=== PATIENT | female | born 1945 | race Caucasian/White ===

== ENCOUNTER 2018-10-09 10:18 | Inpatient (IN) ==
[2018-10-09 10:59] LABS: Basophils # 0.1 10*3/uL (0.0-0.2); Basophils % 0.7 % (0.0-0.8); Eosinophils # 0.1 10*3/uL (0.0-0.87); Hematocrit 42.5 VOL% (35.7-47.0); Hemoglobin 13.9 GM/DL (12.0-16.0); Immature Granulocytes % 0.3 %; Immature Granulocytes Absolute 0.02 #; Lymphocytes # 2.5 10*3/uL (1.4-4.0); Lymphocytes % 36.3 % (21.3-54.2); Mean Corpuscular HGB Conc 32.7 GM/DL (32-36); Mean Corpuscular Volume 91.4 FL (87-102); Monocytes % 7.3 % (1.7-12.7); Neutrophils % 54.4 % (38.7-73.9); Platelet Count 241 T/CUMM (130-400); Red Blood Count 4.65 MC/CUMM (3.8-5.5); Red Cell Distribution Width 13.3 % (9.3-17.3)
[2018-10-09 11:01] LABS: Apearance,Urine Slightly Hazy (Clear); Bacteria,Urine Occasional /HPF (Few); Bilirubin,Urine Negative (Negative); Blood, Urine Negative (Negative); Glucose,Urine (UA) Negative (Negative); Hyaline Casts,Urine 25 /LPF (0-3); Ketones,Urine Negative (Negative); Mucus,Urine Occasional /LPF (Occasional); Nitrite,Urine Positive (Negative); Protein,Urine Negative; RBC,Urine 2 /HPF (0-4); Squamous Epithelial Cell,Urine Occasional /HPF (0-10); Urine Color Yellow (Yellow); Urine Urobilinogen < 2.0 EU/DL (0.2-1.0); WBC,Urine 5 /HPF (0-6)
[2018-10-09 11:06] LABS: INR 0.9; PT Patient Result 10.3 SECS; Partial Thromboplastin Time 25.7 SECS (0-40)
[2018-10-09 11:22] LABS: Barbiturates Screen,Urine Negative (Negative); Benzodiazepines Screen,Urine Negative (Negative); Cannabinoid Screen,Urine Negative (Negative); Opiate Screen,Urine Negative (Negative); Phencyclidine Screen,Urine Negative (Negative)
[2018-10-09 11:23] LABS: Albumin 3.8 G/DL (3.4-5.0); Bilirubin,Total 0.7 MG/DL (0.2-1.0); Calcium 9.5 MG/DL (8.5-10.1); Osmolality,Calculated 280.7 MOS/KG (273-304)
[2018-10-09] MEDS ORDERED: CETIRIZINE 10 MG TABLET ONE (11:35)
[2018-10-09] MEDS ORDERED: methylPREDNISolone SOD SUC 125 MG/2 ML VIAL ONE (11:35)
[2018-10-09] MEDS ORDERED: CETIRIZINE 10 MG TABLET PO STA (11:46)
[2018-10-09] MEDS ORDERED: methylPREDNISolone SOD SUC 125 MG/2 ML VIAL IV STA ×2 (11:46→13:10)
[2018-10-09] MEDS ORDERED: ENOXAPARIN 80 MG/0.8 ML SYRINGE SUBCUT STA (12:43)
[2018-10-09] MEDS ORDERED: cefTRIAXone 1,000 MG in SODIUM CHLORIDE 0.9% 100 ML IV STA (12:45)
[2018-10-09] MEDS ORDERED: cefTRIAXone 1,000 MG in SYRINGE 1 EACH IV STA (12:46)
[2018-10-09] MEDS ORDERED: ONDANSETRON 4 MG/2 ML VIAL IV PRN (12:50)
[2018-10-09] MEDS ORDERED: ACETAMINOPHEN 325 MG TABLET PO PRN (12:50)
[2018-10-09] MEDS ORDERED: FAMOTIDINE 20 MG/2 ML VIAL IV STA (13:10)
[2018-10-09] MEDS ORDERED: hydrOXYzine HCL 25 MG/1 ML VIAL IM ONE ×2 (13:10→14:30)
[2018-10-09] MEDS: SODIUM CHLORIDE 0.9% 1,000 ML IV SCH ×2 (13:51→17:35)
[2018-10-09] MEDS: cefTRIAXone 1,000 MG in SYRINGE 1 EACH IV SCH (14:08)
[2018-10-09] MEDS: PANTOPRAZOLE 40 MG TABLET PO SCH (14:15)
[2018-10-09] MEDS: ENOXAPARIN 80 MG/0.8 ML SYRINGE SUBCUT SCH (14:15)
[2018-10-09] MEDS ORDERED: SODIUM CHLORIDE 0.9% 1,000 ML IV ONE (14:31)
[2018-10-09] MEDS ORDERED: clonazePAM 0.5 MG TABLET PO PRN (16:51)
[2018-10-09] MEDS ORDERED: traZODone 50 MG TABLET PO PRN (16:53)
[2018-10-10] MEDS: ENOXAPARIN 80 MG/0.8 ML SYRINGE SUBCUT SCH (01:45)
[2018-10-10] MEDS: SODIUM CHLORIDE 0.9% 1,000 ML IV SCH ×4 (01:46→17:46)
[2018-10-10 04:39] LABS: Hematocrit 37.7 VOL% (35.7-47.0); Hemoglobin 12.2 GM/DL (12.0-16.0); Immature Granulocytes % 0.8 %; Immature Granulocytes Absolute 0.07 #; Lymphocytes # 1.5 10*3/uL (1.4-4.0); Lymphocytes % 16.8 % (21.3-54.2); Mean Corpuscular HGB Conc 32.4 GM/DL (32-36); Mean Corpuscular Volume 92.2 FL (87-102); Mean Platelet Volume 11.2 FL (9.6-12.0); Monocytes % 1.4 % (1.7-12.7); Platelet Count 203 T/CUMM (130-400); Red Blood Count 4.09 MC/CUMM (3.8-5.5); Red Cell Distribution Width 13.5 % (9.3-17.3); White Blood Count 8.7 T/CUMM (4-12)
[2018-10-10 05:19] LABS: Albumin 3.2 G/DL (3.4-5.0); Bilirubin,Total 0.4 MG/DL (0.2-1.0); Calcium 8.7 MG/DL (8.5-10.1); Osmolality,Calculated 287.3 MOS/KG (273-304); Risk Ratio 4.83; Thyroid Stimulating Hormone 1.13 uIU/ml (0.358-3.74); Total Protein 6.3 G/DL (6.4-8.3); VLDL CHOLESTEROL 35.2 MG/DL
[2018-10-10] MEDS: PANTOPRAZOLE 40 MG TABLET PO SCH (09:13)
[2018-10-10] MEDS: cefTRIAXone 1,000 MG in SYRINGE 1 EACH IV SCH (13:02)
[2018-10-10] MEDS ORDERED: APIXABAN 5 MG TABLET PO SCH (21:00)
[2018-10-11] MEDS: SODIUM CHLORIDE 0.9% 1,000 ML IV SCH ×2 (02:41→10:29)
[2018-10-11 05:51] LABS: Calcium 7.8 MG/DL (8.5-10.1); Osmolality,Calculated 293.6 MOS/KG (273-304)
[2018-10-11 06:01] LABS: Basophils % 0.4 % (0.0-0.8); Eosinophils % 0.3 % (0.00-10.9); Hematocrit 35.5 VOL% (35.7-47.0); Hemoglobin 10.9 GM/DL (12.0-16.0); Immature Granulocytes % 0.3 %; Immature Granulocytes Absolute 0.02 #; Lymphocytes # 3.3 10*3/uL (1.4-4.0); Mean Corpuscular HGB Conc 30.7 GM/DL (32-36); Mean Corpuscular Volume 95.7 FL (87-102); Mean Platelet Volume 11.4 FL (9.6-12.0); Monocytes % 6.5 % (1.7-12.7); Neutrophils % 50.5 % (38.7-73.9); Platelet Count 195 T/CUMM (130-400); Red Blood Count 3.71 MC/CUMM (3.8-5.5)
[2018-10-11] MEDS ORDERED: POLYETHYLENE GLYCOL POWDER 17 GM PACK PO SCH (09:00)
[2018-10-11] MEDS ORDERED: LEVOTHYROXINE 137 MCG TABLET PO SCH (09:00)
[2018-10-11] MEDS ORDERED: MELOXICAM 7.5 MG TABLET PO SCH (09:00)
[2018-10-11] MEDS ORDERED: ASPIRIN CHEW 81 MG TABLET PO SCH (09:00)
[2018-10-11] MEDS ORDERED: ENALAPRIL 10 MG TABLET PO SCH (09:00)
[2018-10-11] MEDS ORDERED: APIXABAN 5 MG TABLET PO SCH (09:00)
[2018-10-11] MEDS ORDERED: FUROSEMIDE 20 MG TABLET PO SCH (09:00)
[2018-10-11] MEDS: PANTOPRAZOLE 40 MG TABLET PO SCH (09:22)
[2018-10-11 12:10] VITALS: BP 153/69
[2018-10-11] MEDS: cefTRIAXone 1,000 MG in SYRINGE 1 EACH IV SCH (13:07)
== END 2018-10-11 13:26 | disposition home or self-care (01) | DRG 176 ==
LOC: N.ED 10:18 → N.EDINP 10:18 → N.5E 15:26
PROVIDERS: ADMIT Internal Medicine; ATTEND Internal Medicine

== ENCOUNTER 2020-06-09 11:49 | Observation (INO) ==
[2020-06-09] MEDS ORDERED: NITROGLYCERIN 2% OINT 1 INCH/GM PACK TOP STA (12:15)
[2020-06-09] MEDS ORDERED: ONDANSETRON 4 MG/2 ML VIAL IV STA ×2 (12:15→13:47)
[2020-06-09] MEDS ORDERED: ENOXAPARIN 100 MG/ML SYRINGE SUBCUT STA (12:15)
[2020-06-09] MEDS ORDERED: ALUM/MAG/SIMETH/LIDO VISC 1:1 30 ML BOTTLE PO STA (12:15)
[2020-06-09] MEDS ORDERED: fentaNYL 100 MCG/2 ML VIAL IV STA ×2 (12:16→13:47)
[2020-06-09 12:37] LABS: Basophils # 0.1 10*3/uL (0.0-0.2); Basophils % 0.8 % (0.0-0.8); Eosinophils # 0.1 10*3/uL (0.0-0.87); Eosinophils % 1.1 % (0.00-10.9); Hematocrit 44.9 VOL% (35.7-47.0); Hemoglobin 14.4 GM/DL (12.0-16.0); Immature Granulocytes % 0.3 %; Immature Granulocytes Absolute 0.02 #; Lymphocytes # 2.9 10*3/uL (1.4-4.0); Lymphocytes % 39.9 % (21.3-54.2); Mean Corpuscular HGB Conc 32.1 GM/DL (32-36); Mean Corpuscular Volume 95.7 FL (87-102); Monocytes % 6.1 % (1.7-12.7); Neutrophils % 51.8 % (38.7-73.9); PT Patient Result 10.8 SECS (9.8-11.9); Partial Thromboplastin Time 27.9 SECS (23.9-33.8); Platelet Count 237 T/CUMM (130-400); Red Blood Count 4.69 MC/CUMM (3.8-5.5); Red Cell Distribution Width 13.4 % (9.3-17.3); White Blood Count 7.4 T/CUMM (4-12)
[2020-06-09 13:08] LABS: Bilirubin,Total 0.6 MG/DL (0.2-1.0); Calcium 9.3 MG/DL (8.5-10.1); Osmolality,Calculated 268.2 MOS/KG (273-304); Potassium 4.2 MMOL/L (3.5-5.1); Total Protein 7.6 G/DL (6.4-8.3)
[2020-06-09] MEDS ORDERED: GLUCAGON 1 MG VIAL IM PRN (14:36)
[2020-06-09] MEDS ORDERED: DEXTROSE 50% 25 GM/50 ML VIAL IV PRN (14:36)
[2020-06-09] MEDS ORDERED: ONDANSETRON 4 MG/2 ML VIAL IV PRN (14:36)
[2020-06-09] MEDS ORDERED: hydrALAZINE 20 MG/1 ML VIAL IV PRN (14:36)
[2020-06-09] MEDS ORDERED: ACETAMINOPHEN 325 MG TABLET PO PRN (14:36)
[2020-06-09] MEDS ORDERED: DOCUSATE SODIUM 100 MG CAPSULE PO PRN (14:36)
[2020-06-09] MEDS ORDERED: fentaNYL 100 MCG/2 ML VIAL IV PRN (14:42)
[2020-06-09] MEDS ORDERED: ENOXAPARIN 40 MG/0.4 ML SYRINGE SUBCUT SCH (15:00)
[2020-06-09] MEDS ORDERED: SERTRALINE 25 MG TABLET PO ONE (16:30)
[2020-06-09] MEDS ORDERED: clonazePAM 0.5 MG TABLET PO ONE (16:30)
[2020-06-09] MEDS: INSULIN LISPRO 100 UNIT/ML SUBCUT SCH ×2 (19:13→21:57)
[2020-06-09] MEDS ORDERED: SERTRALINE 25 MG TABLET PO SCH (21:00)
[2020-06-09] MEDS: clonazePAM 0.5 MG TABLET PO SCH (21:58)
[2020-06-09] MEDS: ACETAMINOPHEN 325 MG TABLET PO SCH (21:58)
[2020-06-09] MEDS: GABAPENTIN 100 MG CAPSULE PO SCH (21:58)
[2020-06-10 03:59] LABS: Barbiturates Screen,Urine Negative (Negative); Benzodiazepines Screen,Urine Negative (Negative); Cannabinoid Screen,Urine Negative (Negative); Opiate Screen,Urine Negative (Negative); Phencyclidine Screen,Urine Negative (Negative)
[2020-06-10 05:25] LABS: Basophils # 0.1 10*3/uL (0.0-0.2); Basophils % 0.7 % (0.0-0.8); Eosinophils # 0.1 10*3/uL (0.0-0.87); Eosinophils % 1.4 % (0.00-10.9); Hematocrit 39.9 VOL% (35.7-47.0); Hemoglobin 13.1 GM/DL (12.0-16.0); Immature Granulocytes % 0.3 %; Immature Granulocytes Absolute 0.02 #; Lymphocytes # 3.3 10*3/uL (1.4-4.0); Lymphocytes % 44.5 % (21.3-54.2); Mean Corpuscular HGB Conc 32.8 GM/DL (32-36); Mean Corpuscular Volume 95.5 FL (87-102); Mean Platelet Volume 11.2 FL (9.6-12.0); Monocytes % 7.9 % (1.7-12.7); Neutrophils % 45.2 % (38.7-73.9); Platelet Count 212 T/CUMM (130-400); Red Blood Count 4.18 MC/CUMM (3.8-5.5); Red Cell Distribution Width 13.3 % (9.3-17.3); White Blood Count 7.3 T/CUMM (4-12)
[2020-06-10 05:51] LABS: Calcium 8.6 MG/DL (8.5-10.1); Osmolality,Calculated 274.8 MOS/KG (273-304); Potassium 3.9 MMOL/L (3.5-5.1)
[2020-06-10] MEDS: INSULIN LISPRO 100 UNIT/ML SUBCUT SCH ×2 (06:39→11:07)
[2020-06-10] MEDS ORDERED: PANTOPRAZOLE 40 MG TABLET PO SCH (09:00)
[2020-06-10] MEDS: ACETAMINOPHEN 325 MG TABLET PO SCH (09:00)
[2020-06-10] MEDS ORDERED: ENALAPRIL 20 MG TABLET PO SCH (09:00)
[2020-06-10] MEDS ORDERED: ASPIRIN CHEW 81 MG TABLET PO SCH (09:00)
[2020-06-10] MEDS ORDERED: OMEGA 3 ACID ETHYL ESTERS 1 GM CAPSULE PO SCH (09:00)
[2020-06-10] MEDS ORDERED: FUROSEMIDE 20 MG TABLET PO SCH (09:00)
[2020-06-10 11:03] LABS: Troponin I < 0.015 NG/ML (0.00-0.045)
[2020-06-10] MEDS: clonazePAM 0.5 MG TABLET PO SCH (11:16)
[2020-06-10] MEDS: GABAPENTIN 100 MG CAPSULE PO SCH (11:17)
[2020-06-10 12:31] VITALS: BP 124/54
== END 2020-06-10 14:00 | disposition home or self-care (01) ==
LOC: N.EDINP 11:49 → N.ED 11:49 → N.3E 16:24
PROVIDERS: ADMIT Internal Medicine; ATTEND Internal Medicine